=== PATIENT | female | born 1935 | race Two or more races ===

== ENCOUNTER 2024-05-07 14:07 | Inpatient (IN) | payer MEDICARE ==
[~2024-05-07] VITALS: Ht 154.9 cm; Wt 50.7 kg
[2024-05-07 14:47] LABS: BASOPHILS % (AUTO) 0.3 % (0.0-2.0); EOSINOPHILS # (AUTO) 0.1 K/uL (0.0-0.7); EOSINOPHILS % (AUTO) 1.3 % (0.0-6.0); HEMATOCRIT 39 % (33-45); HEMOGLOBIN 12.7 g/dL (11.5-14.8); LYMPHOCYTES # (AUTO) 2.5 K/uL (0.8-4.8); LYMPHOCYTES % (AUTO) 30.9 % (20.0-44.0); MEAN CORPUSCULAR HEMOGLOBIN 32 PG (26.0-33.0); MEAN CORPUSCULAR HGB CONC 33 g/dl (31.0-36.0); MEAN CORPUSCULAR VOLUME 98 fL (82-100); MONOCYTES # (AUTO) 0.9 K/uL (0.1-1.30); MONOCYTES % (AUTO) 11.4 % (2.0-12.0); NEUTROPHILS # (AUTO) 4.5 K/uL (1.8-8.9); NEUTROPHILS % (AUTO) 56.1 % (43.0-81.0); PLATELET COUNT (AUTO) 280 K/uL (150-450); RED BLOOD CELL COUNT(AUTO) 3.96 MIL/uL (4.0-5.2); RED CELL DISTRIBUTION WIDTH 13.6 % (11.5-15.0); WHITE BLOOD COUNT (AUTO) 8.1 K/uL (4.3-11.0)
[2024-05-07 15:02] LABS: INR 1.05 (0.91-1.10); PARTIAL THROMBOPLASTIN TIME 32.4 SEC (24.3-34.3); PROTHROMBIN TIME 11.1 SECS (9.2-11.1)
[2024-05-07 15:04] LABS: CALCIUM, SERUM 8.9 mg/dL (8.5-10.1); CARBON DIOXIDE 31 mmol/L (21-32); CHLORIDE 108 mmol/L (98-107); CREATININE 0.6 mg/dL (0.6-1.3); GLUCOSE 111 mg/dL (74-106); POTASSIUM 3.9 mmol/L (3.5-5.1); SODIUM SERUM 145 mmol/L (136-145); UREA NITROGEN, BLOOD 23 mg/dL (7-18)
[2024-05-07 15:11] LABS: ALANINE AMINOTRANSFERASE 11 U/L (12-78); ALKALINE PHOSPHATASE 68 U/L (46-116); ASPARTATE AMINOTRANSFERASE 19 U/L (15-37); BILIRUBIN,TOTAL 0.3 mg/dL (0.2-1.0); TOTAL PROTEIN, SERUM 5.6 g/dL (6.4-8.2)
[2024-05-07] MEDS ORDERED: IOHEXOL-350 100 ML VIAL IV ONE (15:53)
[2024-05-07] MEDS ORDERED: IV NS 0.9% 250 ML IV ONE (15:54)
[2024-05-07 17:00] VITALS: O2SAT 96
[2024-05-07] MEDS ORDERED: ONDANSETRON HCL/PF 4 MG/2 ML VIAL IVP PRN (18:00)
[2024-05-07] MEDS ORDERED: MAG HYDROX/AL HYDROX/SIMETH 30 ML UDC PO PRN (18:00)
[2024-05-07] MEDS ORDERED: ACETAMINOPHEN 325 MG TABLET PO PRN (18:00)
[2024-05-07] MEDS ORDERED: ICOS1CAP PO (18:23)
[2024-05-07] MEDS ORDERED: BENA10TA74 PO ×2 (18:23→20:21)
[2024-05-07] MEDS ORDERED: DONE5TAB34 PO (18:23)
[2024-05-07] MEDS ORDERED: DIVA-76 PO (18:23)
[2024-05-07] MEDS ORDERED: SIMV-46 PO (18:23)
[2024-05-07] MEDS ORDERED: ESCI5TAB PO (18:23)
[2024-05-07] MEDS ORDERED: DOCU100C36 PO (18:23)
[2024-05-07] MEDS ORDERED: MULT-213 PO (18:23)
[2024-05-07] MEDS ORDERED: ASPI-1420 PO (18:23)
[2024-05-07] MEDS ORDERED: SENN-261 PO (18:23)
[2024-05-07] MEDS ORDERED: METO25TA4 PO (18:23)
[2024-05-07] MEDS ORDERED: ACET-637 PO (18:23)
[2024-05-07] MEDS ORDERED: MEMA5TAB42 PO (18:23)
[2024-05-07] MEDS: IV NS 0.9% 1,000 ML IV PRN (18:45)
[2024-05-07] MEDS: ENOXAPARIN SODIUM 60 MG/0.6 ML DISP.SYRIN SQ SCH (18:50)
[2024-05-07 19:08] VITALS: BP 95/67; TEMP 97.9; O2SAT 94
[2024-05-07 20:00] VITALS: BP 122/95; TEMP 97.3; O2SAT 96
[2024-05-08 07:30] VITALS: BP 162/83; TEMP 98.1; O2SAT 97
[2024-05-08 07:44] LABS: BASOPHILS % (AUTO) 0.5 % (0.0-2.0); EOSINOPHILS # (AUTO) 0.1 K/uL (0.0-0.7); EOSINOPHILS % (AUTO) 1.7 % (0.0-6.0); HEMATOCRIT 39 % (33-45); LYMPHOCYTES # (AUTO) 2.9 K/uL (0.8-4.8); LYMPHOCYTES % (AUTO) 43.4 % (20.0-44.0); MEAN CORPUSCULAR HEMOGLOBIN 32 PG (26.0-33.0); MEAN CORPUSCULAR HGB CONC 33 g/dl (31.0-36.0); MEAN CORPUSCULAR VOLUME 97 fL (82-100); MONOCYTES # (AUTO) 0.7 K/uL (0.1-1.30); MONOCYTES % (AUTO) 10.7 % (2.0-12.0); NEUTROPHILS # (AUTO) 2.9 K/uL (1.8-8.9); NEUTROPHILS % (AUTO) 43.7 % (43.0-81.0); PLATELET COUNT (AUTO) 298 K/uL (150-450); RED BLOOD CELL COUNT(AUTO) 4.03 MIL/uL (4.0-5.2); RED CELL DISTRIBUTION WIDTH 13.4 % (11.5-15.0); WHITE BLOOD COUNT (AUTO) 6.7 K/uL (4.3-11.0)
[2024-05-08 08:13] LABS: CALCIUM, SERUM 8.6 mg/dL (8.5-10.1); CARBON DIOXIDE 26 mmol/L (21-32); CHLORIDE 108 mmol/L (98-107); CREATININE 0.4 mg/dL (0.6-1.3); GLUCOSE 80 mg/dL (74-106); POTASSIUM 3.8 mmol/L (3.5-5.1); SODIUM SERUM 143 mmol/L (136-145); UREA NITROGEN, BLOOD 13 mg/dL (7-18)
[2024-05-08] MEDS ORDERED: Medication Not On Formulary EA (Icosapent Ethyl (Vascepa) 1 GM) PO SCH (09:00)
[2024-05-08] MEDS: METOPROLOL SUCCINATE 25 MG TAB.SR.24H PO SCH (09:00)
[2024-05-08] MEDS ORDERED: Z GUARD REMEDY 4 OZ OINT TP PRN (09:30)
[2024-05-08] MEDS: SENNOSIDES 8.6 MG TABLET PO SCH (09:31)
[2024-05-08] MEDS: DONEPEZIL 5 MG TABLET PO SCH (09:31)
[2024-05-08] MEDS: DIVALPROEX SODIUM 250 MG TABLET.DR PO SCH (09:31)
[2024-05-08] MEDS: MULTIVITAMINS,THERAGRAN 1 UDTAB TABLET PO SCH (09:31)
[2024-05-08] MEDS: MEMANTINE HCL 5 MG TABLET PO SCH (09:31)
[2024-05-08] MEDS: BENAZEPRIL HCL 10 MG TABLET PO SCH ×2 (09:33→21:22)
[2024-05-08] MEDS: DOCUSATE SODIUM 100 MG CAPSULE PO SCH (09:34)
[2024-05-08] MEDS: Z GUARD REMEDY 4 OZ OINT TP SCH (13:37)
[2024-05-08] MEDS: SIMVASTATIN 20 MG TABLET PO SCH (21:22)
[2024-05-08] MEDS: ESCITALOPRAM OXALATE (10 MG) 10 MG TABLET PO SCH (21:22)
[2024-05-09 07:00] VITALS: BP 150/84; TEMP 94.3; O2SAT 90
[2024-05-09 08:46] VITALS: BP 150/84
[2024-05-09] MEDS ORDERED: ENOX60DI SQ (14:16)
[2024-05-09] MEDS ORDERED: APIX5TAB PO (15:58)
== END 2024-05-09 18:36 | disposition home health service (06) | DRG 300 ==
LOC: ER 14:57 → MED 16:49
PROVIDERS: ADMIT Nurse Practitioner Acute Care; ATTEND Nurse Practitioner Acute Care
DX: I82.A12 Acute embolism and thrombosis of left axillary vein (principal); E44.0 Moderate protein-calorie malnutrition; J90 Pleural effusion, not elsewhere classified; J98.11 Atelectasis; E86.0 Dehydration; I82.B12 Acute embolism and thrombosis of left subclavian vein; E88.09 Other disorders of plasma-protein metabolism, not elsewhere classified; Z66 Do not resuscitate; I10 Essential (primary) hypertension; Z79.899 Other long term (current) drug therapy; Z79.82 Long term (current) use of aspirin; F03.90 Unspecified dementia, unspecified severity, without behavioral disturbance, psychotic disturbance, mood disturbance, and anxiety; Z91.81 History of falling; R29.6 Repeated falls; S20.212A Contusion of left front wall of thorax, initial encounter; X58.XXXA Exposure to other specified factors, initial encounter; Y92.9 Unspecified place or not applicable; Z99.3 Dependence on wheelchair; R22.2 Localized swelling, mass and lump, trunk
CPT/HCPCS: 36415; 80048-TC; 80053-TC; 83735-TC; 84100-TC; 84484-TC; 85025-TC; 85610-TC; 85730-TC; 87081-TC; 97112-TC; 97530-TC; A4223; G0378; J1650; J7030; J7050; Q9967